=== PATIENT | male | born 1975 | race Two or more races ===

== ENCOUNTER → 2018-02-09 | Outpatient (CLI) | payer OTHER | END | disposition home or self-care (01) | LOC: SONOGRAMA 08:07 | DX: R10.30 Lower abdominal pain, unspecified (principal); D18.09 Hemangioma of other sites ==

== ENCOUNTER 2024-10-18 13:24 | Inpatient (IN) | payer OTHER ==
[~2024-10-18] VITALS: Ht 170.2 cm; Wt 61.7 kg
--- NOTE | 2024-10-18 15:02 | NUR ---
paciente refiere dolor abdominal desde el davion
[2024-10-18] MEDS ORDERED: ONDANSETRON HCL 2 MG/ML VIAL IV ONE (15:30)
[2024-10-18] MEDS ORDERED: FAMOTIDINE/PF 20 MG/2 ML VIAL IV ONE (15:30)
[2024-10-18] MEDS ORDERED: 0.9 % SODIUM CHLORIDE 1,000 ML IV ONE (15:30)
[2024-10-18] MEDS ORDERED: ONDANSETRON HCL 2 MG/ML VIAL ONE (16:31)
[2024-10-18] MEDS ORDERED: FAMOTIDINE/PF 20 MG/2 ML VIAL ONE (16:32)
[2024-10-18] MEDS ORDERED: PIPERACILLIN/TAZOBACTAM SODIUM 3.375 GM VIAL IV ONE (18:45)
[2024-10-18] MEDS ORDERED: MEROPENEM 1,000 MG VIAL IV ONE (19:00)
[2024-10-18 19:21] LABS: HEMATOCRIT 40.4 % (39.0-48.0); HEMOGLOBIN 13.5 g/dL (13-16.00); MEAN CELL VOLUME 85.6 fL (80.0-100.00); MEAN CORPUSCULAR HEMOGLOBIN 28.5 pg (27.00-32.0); MEAN CORPUSCULAR HGB CONC 33.4 g/dl (32.0-36.0); PLATELET COUNT 208 K/uL (150-450); RED BLOOD COUNT 4.72 M/uL (4.00-6.00); RED CELL DISTRIBUTION WIDTH 13.5 % (11.5-14.5)
[2024-10-18] MEDS ORDERED: LIDOCAINE HCL VISCOUS 20MG/ML BLIST 15ML MM ONE (19:21)
[2024-10-18 19:42] LABS: INR 1.05; PARTIAL THROMBOPLASTIN TIME 28.5 SECONDS (22.0-34.0); PROTHROMBIN TIME 11.4 SECONDS (9.0-11.5)
[2024-10-18 19:56] LABS: ALBUMIN 3.3 gm/dL (3.4-5.0); BILIRUBIN TOTAL 0.71 mg/dL (0.3-1.2); BILIRUBIN,CONJUGATED 0.18 mg/dL (0.0-0.2); BILIRUBIN,UNCONJUGATED 0.53 mg/dL (0.0-0.6); CALCIUM 8.8 mg/dL (8.5-10.1); CREATININE SERUM 1.06 mg/dL (0.70-1.30); GFR 74.57; GLOBULINA 3.4 G/DL (2.4-3.5); POTASSIUM 4.05 mEq/L (3.5-5.1); TOTAL PROTEIN 6.7 gm/dL (6.4-8.2)
[2024-10-18 20:23] LABS: PH,URINE 6.5 (5.0-8.0); URINE APPEARANCE Clear; URINE BILIRRUBIN Negative (NEGATIVE); URINE BLOOD Small; URINE COLOR Yellow; URINE GLUCOSE Negative (NEGATIVE); URINE KETONE Negative (NEGATIVE); URINE LEUKOCYTE Negative; URINE NITRATE Negative; URINE UROBILINOGEN 0.2 E.U./dl
[2024-10-18 20:27] LABS: URINE EPITHELIAL CELLS 2.2 uL (0.0-38.8); URINE RBC 102.2 uL (0.0-20.8)
[2024-10-18 20:30] LABS: URINE BACTERIA 3.2 uL (0.0-1933); URINE PROTEIN 100 (NEGATIVE); URINE WBC 1.5 uL (0.0-23.2)
[2024-10-18] MEDS ORDERED: 0.9 % SODIUM CHLORIDE 1,000 ML IV SCH (20:45)
[2024-10-18] MEDS ORDERED: ONDANSETRON HCL 4 MG in 0.9 % SODIUM CHLORIDE 50 ML IV PRN (21:00)
[2024-10-18] MEDS ORDERED: MORPHINE SULFATE 4 MG/ML CARTRIDGE IV PRN (21:00)
[2024-10-18] MEDS ORDERED: MORPHINE SULFATE 4 MG/ML CARTRIDGE IV ONE (21:00)
[2024-10-19 01:37] VITALS: BP 99/89; O2SAT 96
[2024-10-19 08:10] VITALS: BP 109/72; O2SAT 96
[2024-10-19] MEDS ORDERED: FAMOTIDINE/PF 20 MG in 0.9 % SODIUM CHLORIDE 8 ML IV PUSH SCH (09:00)
[2024-10-19] MEDS ORDERED: MEROPENEM 500 MG/VIAL VIAL IV NR (10:00)
[2024-10-19] MEDS ORDERED: MEROPENEM 500 MG in 0.9 % SODIUM CHLORIDE 50 ML IV SCH (14:00)
[2024-10-19 16:00] VITALS: BP 136/80; O2SAT 98
[2024-10-20] VITALS: BP 110/60; O2SAT 96
[2024-10-20 07:30] LABS: HEMATOCRIT 35.6 % (39.0-48.0); HEMOGLOBIN 12.3 g/dL (13-16.00); MEAN CELL VOLUME 83.7 fL (80.0-100.00); MEAN CORPUSCULAR HEMOGLOBIN 28.8 pg (27.00-32.0); MEAN CORPUSCULAR HGB CONC 34.4 g/dl (32.0-36.0); PLATELET COUNT 197 K/uL (150-450); RED BLOOD COUNT 4.25 M/uL (4.00-6.00); RED CELL DISTRIBUTION WIDTH 13.6 % (11.5-14.5)
[2024-10-20 08:00] VITALS: BP 103/70; O2SAT 96
[2024-10-20 08:01] LABS: CALCIUM 8.2 mg/dL (8.5-10.1); CREATININE SERUM 0.77 mg/dL (0.70-1.30); GFR 107.83; POTASSIUM 3.81 mEq/L (3.5-5.1)
[2024-10-20 16:00] VITALS: BP 130/64; O2SAT 97
[2024-10-21 06:42] LABS: CALCIUM 8.2 mg/dL (8.5-10.1); CREATININE SERUM 0.78 mg/dL (0.70-1.30); GFR 106.23; POTASSIUM 3.93 mEq/L (3.5-5.1)
[2024-10-21] MEDS ORDERED: BUPIVACAINE HCL/Mpf 0.5% 10ML VIAL ONE (07:19)
[2024-10-21] MEDS ORDERED: LIDOCAINE HCL 1%/EPINEPHRINE 20ML VIAL IJ ONE (07:20)
[2024-10-21] MEDS ORDERED: BUPIVACAINE HCL/MPF 0.5% 30ML VIAL ONE (08:06)
[2024-10-21] MEDS ORDERED: FAMOTIDINE/PF 20 MG/2 ML VIAL ONE (09:11)
[2024-10-21] MEDS ORDERED: SUGAMMADEX SODIUM 200 MG/2 ML VIAL IV ONE (09:20)
[2024-10-21] MEDS ORDERED: KETOROLAC TROMETHAMINE 30 MG VIAL ONE (11:25)
[2024-10-22 08:00] VITALS: BP 107/70; O2SAT 99
[2024-10-22 12:20] LABS: HEMATOCRIT 42.3 % (39.0-48.0); HEMOGLOBIN 14.1 g/dL (13-16.00); MEAN CELL VOLUME 85.7 fL (80.0-100.00); MEAN CORPUSCULAR HEMOGLOBIN 28.5 pg (27.00-32.0); MEAN CORPUSCULAR HGB CONC 33.3 g/dl (32.0-36.0); PLATELET COUNT 354 K/uL (150-450); RED BLOOD COUNT 4.93 M/uL (4.00-6.00); RED CELL DISTRIBUTION WIDTH 13.5 % (11.5-14.5)
[2024-10-22 13:13] LABS: CALCIUM 8.3 mg/dL (8.5-10.1); CHOL HDL RATIO 3.3 (0-5.0); CREATININE SERUM 0.6 mg/dL (0.70-1.30); GFR 143.8; POTASSIUM 4.09 mEq/L (3.5-5.1)
[2024-10-22 16:00] VITALS: BP 117/66; O2SAT 97
[2024-10-22] MEDS ORDERED: AMINO ACIDS 4.25 %/DEXTROSE 5% 1,000 ML PERIFERAL SCH (17:00)
[2024-10-22] MEDS ORDERED: KETOROLAC TROMETHAMINE 30 MG VIAL IV PRN (18:15)
[2024-10-23] VITALS: BP 107/61; O2SAT 96
[2024-10-23 09:02] VITALS: BP 109/74; O2SAT 96
[2024-10-23 16:00] VITALS: BP 115/70; O2SAT 98
[2024-10-24 00:12] VITALS: BP 110/66; O2SAT 97
[2024-10-24 07:48] VITALS: BP 109/72; O2SAT 96
[2024-10-24 10:23] LABS: HEMATOCRIT 36.5 % (39.0-48.0); HEMOGLOBIN 12.2 g/dL (13-16.00); MEAN CELL VOLUME 85.2 fL (80.0-100.00); MEAN CORPUSCULAR HEMOGLOBIN 28.4 pg (27.00-32.0); MEAN CORPUSCULAR HGB CONC 33.3 g/dl (32.0-36.0); PLATELET COUNT 430 K/uL (150-450); RED BLOOD COUNT 4.28 M/uL (4.00-6.00); RED CELL DISTRIBUTION WIDTH 13.5 % (11.5-14.5)
[2024-10-24 11:43] LABS: ALBUMIN 2.3 gm/dL (3.4-5.0); BILIRUBIN TOTAL 1.03 mg/dL (0.3-1.2); CALCIUM 7.9 mg/dL (8.5-10.1); CREATININE SERUM 0.61 mg/dL (0.70-1.30); GFR 141.08; GLOBULINA 3.2 G/DL (2.4-3.5); POTASSIUM 3.12 mEq/L (3.5-5.1); TOTAL PROTEIN 5.5 gm/dL (6.4-8.2)
[2024-10-24 16:00] VITALS: BP 118/63; O2SAT 99
[2024-10-24 23:42] VITALS: BP 111/63; O2SAT 97
[2024-10-25] MEDS ORDERED: POTASSIUM CHLORIDE 20MEQ/100ML H2O PB IV NR (07:55)
[2024-10-25 09:12] VITALS: BP 117/84; O2SAT 96
[2024-10-25 16:00] VITALS: BP 108/70; O2SAT 99
[2024-10-26] VITALS: BP 118/67; BP 94/53; O2SAT 95; O2SAT 98
[2024-10-26 08:19] VITALS: BP 104/67; O2SAT 96
[2024-10-26 08:23] LABS: CREATININE SERUM 0.58 mg/dL (0.70-1.30); GFR 149.54; POTASSIUM 3.64 mEq/L (3.5-5.1)
[2024-10-26] MEDS ORDERED: DIATRIZOATE MEGLUMINE, SODIUM 30 ML BOTTLE PO NR (08:30)
[2024-10-26 16:10] VITALS: BP 94/55; O2SAT 99
[2024-10-26] MEDS ORDERED: MEROPENEM 500 MG/VIAL VIAL IV SCH (18:00)
[2024-10-27] VITALS: BP 94/62; O2SAT 96
[2024-10-27] MEDS ORDERED: DIATRIZOATE MEGLUMINE, SODIUM 30 ML BOTTLE PO NR (05:00)
[2024-10-27 08:00] VITALS: BP 106/72; O2SAT 100
[2024-10-29 16:00] VITALS: BP 115/69; O2SAT 99
[2024-10-29] MEDS ORDERED: fentaNYL CITRATE 50 MCG/ML AMPUL IV PUSH ONE (16:15)
[2024-10-29] MEDS ORDERED: MIDAZOLAM HCL 2 MG/2 ML VIAL IV PUSH ONE (16:15)
[2024-10-30 12:16] LABS: HEMATOCRIT 34.2 % (39.0-48.0); HEMOGLOBIN 11.5 g/dL (13-16.00); MEAN CELL VOLUME 84.8 fL (80.0-100.00); MEAN CORPUSCULAR HEMOGLOBIN 28.4 pg (27.00-32.0); MEAN CORPUSCULAR HGB CONC 33.5 g/dl (32.0-36.0); PLATELET COUNT 567 K/uL (150-450); RED BLOOD COUNT 4.03 M/uL (4.00-6.00); RED CELL DISTRIBUTION WIDTH 13.1 % (11.5-14.5)
[2024-10-30 13:05] LABS: ALBUMIN 2.7 gm/dL (3.4-5.0); BILIRUBIN TOTAL 0.61 mg/dL (0.3-1.2); CALCIUM 8.9 mg/dL (8.5-10.1); CREATININE SERUM 0.65 mg/dL (0.70-1.30); GFR 131.11; GLOBULINA 3.7 G/DL (2.4-3.5); POTASSIUM 4.38 mEq/L (3.5-5.1); TOTAL PROTEIN 6.4 gm/dL (6.4-8.2)
[2024-10-31 08:00] VITALS: BP 122/64; O2SAT 94
[2024-11-02] MEDS ORDERED: DIATRIZOATE MEGLUMINE, SODIUM 30 ML BOTTLE PO ONE (12:00)
[2024-11-03] MEDS ORDERED: DIATRIZOATE MEGLUMINE, SODIUM 30 ML BOTTLE PO SCH (05:00)
== END 2024-11-04 13:19 | disposition home or self-care (01) | DRG 330 ==
LOC: ER 13:26 → SURH 21:01
PROVIDERS: General Practice; Internal Medicine; Student in an Organized Health Care Education/Training Program; Surgery; ADMIT Internal Medicine; ATTEND Internal Medicine
PROC: BW40ZZZ Ultrasonography of Abdomen (ICD-10-PCS; 2024-10-18)
PROC: BW21YZZ Computerized Tomography (CT Scan) of Abdomen and Pelvis using Other Contrast (ICD-10-PCS; 2024-10-18)
PROC: 0DTJ4ZZ Resection of Appendix, Percutaneous Endoscopic Approach (ICD-10-PCS; 2024-10-21)
PROC: 0WQF4ZZ Repair Abdominal Wall, Percutaneous Endoscopic Approach (ICD-10-PCS; 2024-10-21)
PROC: 0W9G4ZZ Drainage of Peritoneal Cavity, Percutaneous Endoscopic Approach (ICD-10-PCS; 2024-10-21)
PROC: 0DNW4ZZ Release Peritoneum, Percutaneous Endoscopic Approach (ICD-10-PCS; 2024-10-21)
PROC: 0DBH4ZZ Excision of Cecum, Percutaneous Endoscopic Approach (ICD-10-PCS; principal; 2024-10-21 07:00)
PROC: BW21YZZ Computerized Tomography (CT Scan) of Abdomen and Pelvis using Other Contrast (ICD-10-PCS; 2024-10-27)
PROC: 0W9G30Z Drainage of Peritoneal Cavity with Drainage Device, Percutaneous Approach (ICD-10-PCS; 2024-10-29)
PROC: BW21YZZ Computerized Tomography (CT Scan) of Abdomen and Pelvis using Other Contrast (ICD-10-PCS; 2024-11-03)
DX: K35.31 Acute appendicitis with localized peritonitis and gangrene, without perforation (principal); K56.609 Unspecified intestinal obstruction, unspecified as to partial versus complete obstruction; K52.9 Noninfective gastroenteritis and colitis, unspecified; E80.4 Gilbert syndrome; K43.9 Ventral hernia without obstruction or gangrene